=== PATIENT | female | born 1980 | race Caucasian/White ===

== ENCOUNTER 2016-12-22 16:17 | Outpatient (CLI) | payer OTHER ==
[~2016-12-22] VITALS: Ht 165.1 cm; Wt 88.5 kg
--- NOTE | 2016-12-22 16:50 | RADRPT ---
PROCEDURE: US OB biophysical profile. CLINICAL INDICATION: decreased movements TECHNIQUE: Multiple sonographic images of the pelvis were obtained. The images were reviewed on a PACS workstation. COMPARISON: No prior studies are available for comparison. FINDINGS: There is a single viable intrauterine gestation. Cardiac activity is present with 137 beats per min max. There is a vertex presentation. The placenta is anterior. There is no evidence of placental abruption. There is a normal amount of amniotic fluid with an SHYLA = 11.6 cm. Biophysical profile: movement 2/2 tone 2/2. breathing 2/2 SHYLA 2/2 Total 10/03 RPTAT: AA . IMPRESSION: Normal biophysical profile. . .Zaki Viveros MD, MD Date Time Electronically viewed and signed by .Zaki Viveros MD, MD on 12/22/2016 16:49 .S/
--- NOTE | 2016-12-22 17:32 | PN ---
Triage Information Date/Time Reason for visit: DFM Weeks of Gestation 37+ /Para 1/0 Diabetes: none Hypertention: none Objective Heart Rate: 140's Contractions: 6-10 Minutes Apart Disposition: Discharge Assessment/Plan +FM No VB No LOF Irregular CTXs NST reassuring Pelvic L/c/P BPP 10/03 --->precautions discussed --->Retrun in 2 days to monitor the baby TERRIE WHITTAKER M.D. Dec 22, 2016 17:31
--- NOTE | 2016-12-22 17:57 | TRIAGE ---
OB Triage Datetime Report Generated by CPN: 12/22/2016 17:57 Datetime: 12/22/2016 17:16 Labor Evaluation Frequency: IRREG Monitor Mode: External Duration (sec)2399: 50-90 Quality: Mild Pattern: Normal: <= 5 Contractions in 10 Minutes Resting Tone [place]: Relaxed Contraction Comments: PT DENIES UCS AT THIS TIME Heart Rate FHR Baseline Rate: 145 Monitor Mode: External US Variability: Moderate 6-25 bpm Accelerations: 15X15 Decelerations: None Category: Category I Comments: NST REACTIVE FOR GESTATIONAL AGE Datetime: 12/22/2016 16:45 Stage of : OB Triage Assessment Type: Triage Maternal Assessment Level of Consciousness: Fully Conscious DTR's/Clonus: DTRs 2+; No Clonus Headache: Denies Blurred Vision: No Respiratory Effort: Unlabored; Regular Rhythm; Equal Expansion Breath Sounds, Left: Clear and Equal Breath Sounds, Right: Clear and Equal Nausea/Vomiting: Denies RUQ Epigastric Pain: Denies Lower Extremities Edema: Bilateral Lower Extremities Degree: 1+ Upper Extremities Edema: None Degree: None Facial Edema: None Temperature Route: Axillary Fall Risk Assessment History of Falling: (0) No Secondary Diagnosis: (0) No Ambulatory Aid: (0) Bedrest/Nurse Assist IV Therapy: (0) No Gait: (0) Normal/Bedrest/Immobile Mental Status: (0) Oriented to Own Ability Fall Score: 0 Fall Risk Score Definition: No Risk: No action required Pain Assessment Pain Scale: 0 Pain Presence: None/Denies Pain Type: N/A Datetime: 12/22/2016 16:42 Time of Arrival: 12/22/2016 16:04 EGA: 37.4 Arrived By: Ambulatory Arrived From: Dr. Teran Chief Complaint: DFM CAME IN WITH ORDERS FOR NST AND BPP Movement: Decreased Contractions: Denies/Absent Rupture of Membranes: Denies Vaginal Discharge: Denies Recent Sexual Intercouse: Denies Abdominal Trauma: Not Applicable Patient Complaints: None Time Provider Notified: 12/22/2016 15:36 Provider Notified: DR. SWANSON Initial Plan: NST/ BPP Datetime: 12/22/2016 16:38 Comments: ULTRASOUND AT THE BEDSIDE
[2016-12-22] MEDS ORDERED: PREN-93 PO (18:01)
[2016-12-22] MEDS ORDERED: LEVO25TA53 PO (18:01)
[2016-12-22 18:03] VITALS: BP 127/70; PULSE 68; RESP 20; Ht 165.1 cm; Wt 88.5 kg
== END 2016-12-22 18:10 | disposition home or self-care (01) ==
LOC: OBT 16:17 → L-D 16:22 → OBT 18:10
PROVIDERS: ATTEND Obstetrics & Gynecology
DX: O36.8130 Decreased fetal movements, third trimester, not applicable or unspecified (principal); Z3A.37 37 weeks gestation of pregnancy
CPT/HCPCS: 76818; Z7500; G0463

== ENCOUNTER 2016-12-25 07:20 | Outpatient (CLI) | END 2016-12-25 09:55 | disposition home or self-care (01) ==

== ENCOUNTER 2016-12-29 01:20 | Inpatient (IN) | payer OTHER ==
[~2016-12-29] VITALS: Ht 165.1 cm; Wt 87.4 kg
[~2016-12-29 01:20] MED LIST: LEVO25TA53 PO; PREN-93 PO
[2016-12-29 01:47] VITALS: Ht 165.1 cm; Wt 87.4 kg
[2016-12-29 01:48] VITALS: BP 125/77; PULSE 86; RESP 16
--- NOTE | 2016-12-29 02:25 | HP ---
Date/Time of Note Date/Time of Note DATE: 12/29/16 TIME: 02:15 OB - History Hx of Present Free Text/Dictation 36 y.o primigravida at 38w4d c/o srom at 0055 12/29/16 EFM uc q 4-8apart VE 1-2/50%/-3 clear fluid grossly ruptured patient known to be A1DM and also has hypothyroidism on levothyroxine 25mcg admitted for expectant management. ADD: plan to have EFW will do it prior to admit in triage. Estimated Due Date: Jan 08, 2017 : 1 Para: 0 Spontaneous : 0 Therapeutic : 0 Care: Good Care Ultrasounds: Normal mid trimester US Obstetrical Complications: Gestational Diabetes Medical Complications: None Past Family/Social History * Past Medical, Surgical, Family and Obstetric Histories reviewed from chart. Blood Type: B+ Rubella: immune RPR/VDRL: Negative GBS Status: Negative HBsAG: Negative OB Admission Exam Vital Signs Vital Signs Vital Signs Date Time Temp Pulse Resp B/P Pulse Ox O2 Delivery O2 Flow Rate FiO2 12/29/16 01:48 98.1 86 16 125/77 Room Air Physical Exam HEENT: WNL Heart: Rhythm Normal Lungs: Clear, Equal Abdomen: WNL Extremities: Normal Reflexes: Normal Cervical Dilatation: other (1-2) Effacement: 50% Station: -3 Membranes: Ruptured Amniotic Fluid: Clear Heart Rate: 140's Accelerations: Accelerations Present Decelerations: No Decelerations Varibility: Moderate Contractions on Admission: 6-10 Minutes Apart Intensity: Mild OB Assessment/Plan Reason for admission: rupture of membranes Other Assessment: IUP 38w4d A1DM in early labor Plan: Expectant Management Other plan: poss pitocin augmentation ALIVIA HARRIS MD Dec 29, 2016 02:25
--- NOTE | 2016-12-29 02:38 | RADRPT ---
PROCEDURE: Obstetrical ultrasound, limited. CLINICAL INDICATION: Pelvic pain. TECHNIQUE: Multiple sonographic images of the pelvis were obtained using transabdominal technique . Images were obtained with zayas scale and color Doppler. The images were reviewed on a PACS works tation. COMPARISON: 12/25/2016. FINDINGS: There is a single living intrauterine gestation with the fetus in a vertex presentation. hear t tones of 144 beats per minute are identified. The placenta is anterior in location, grade 2. The re is no evidence of placenta previa or abruption. Measurements were made in order to determine age. The results are as follows: BPD =9.41 cm HC =34.49 cm AC =37.40 cm FL =7.78 cm. Estimated gestational age of approximately 39 weeks and 6 days. The estimated date of delivery is 12/30/2016. The EFW = 4087 +/- 613 grams. Estimated weight percentage equals 95.8%. IMPRESSION: Single viable intrauterine gestation of approximately 39 weeks and 6 days, with an ultrasound LARY of 12/30/2016. .Willy Sapp MD, MD Date Time Electronically viewed and signed by .Willy Sapp MD, MD on 12/29/2016 02:38 .T/
[2016-12-29] MEDS ORDERED: IBUPROFEN 600 MG TAB PO PRN (03:00)
[2016-12-29] MEDS ORDERED: BUTORPHANOL 2 MG INJ IV PRN (03:00)
[2016-12-29] MEDS ORDERED: CARBOPROST 250 MCG INJ IM PRN ×3 (03:00→12:30)
[2016-12-29] MEDS ORDERED: METHYLERGONOVINE 0.2 MG INJ IM PRN ×3 (03:00→12:30)
[2016-12-29] MEDS ORDERED: LACTATED RINGER'S 1,000 ML IV PRN (03:00)
[2016-12-29] MEDS ORDERED: LIDOCAINE 1% (MPF) 30 ML INJ INJ PRN (03:00)
[2016-12-29] MEDS ORDERED: MISOPROSTOL 200 MCG TAB PR PRN ×3 (03:00→12:30)
[2016-12-29] MEDS ORDERED: OXYTOCIN 30 UNITS/LR 500 ML IV PRN ×3 (03:00→12:30)
--- NOTE | 2016-12-29 03:27 | TRIAGE ---
OB Triage Datetime Report Generated by CPN: 12/29/2016 03:27 Datetime: 12/29/2016 03:00 Labor Evaluation Frequency: 2-5 Monitor Mode: External Duration (sec)2399: 40-80 Quality: Mild Pattern: Normal: <= 5 Contractions in 10 Minutes Resting Tone [place]: Relaxed Heart Rate FHR Baseline Rate: 135 Monitor Mode: External US Variability: Moderate 6-25 bpm Accelerations: 15X15 Decelerations: None Category: Category I Datetime: 12/29/2016 02:32 Pain Assessment Pain Scale: 5 Pain Presence: Intermittent Pain Type: Contraction Pain Location: Abdomen Pain Goal: 2 Pain Relief Measures: Comfort Measures Datetime: 12/29/2016 02:00 Labor Evaluation Frequency: 2-7 Monitor Mode: External Duration (sec)2399: 40-60 Quality: Mild Pattern: Normal: <= 5 Contractions in 10 Minutes Resting Tone [place]: Relaxed Heart Rate FHR Baseline Rate: 145 Monitor Mode: External US Variability: Moderate 6-25 bpm Accelerations: 15X15 Decelerations: Late Category: Category II Comments: PERIOD OF MINIMAL VARIABILITY NOTED Datetime: 12/29/2016 01:35 Vaginal Exam Dilatation (cms): 1.5 Effacement (%): 50 Station: -3 Membrane Status: Ruptured Membranes Rupture Method: Spontaneous Amniotic Fluid Amount: Moderate Datetime: 12/29/2016 01:29 Maternal Assessment Level of Consciousness: Fully Conscious DTR's/Clonus: DTRs 2+; No Clonus Headache: Denies Blurred Vision: No Respiratory Effort: Unlabored; Regular Rhythm; Equal Expansion RUQ Epigastric Pain: Denies Pain Assessment Pain Scale: 0 Pain Presence: None/Denies Pain Type: N/A Datetime: 12/29/2016 01:27 Time of Arrival: 12/29/2016 01:20 EGA: 38.4 Arrived By: Wheelchair Arrived From: Emergency Dept Chief Complaint: SROM Movement: Present Contractions: Denies/Absent Rupture of Membranes: Ruptured Vaginal Bleeding: None Vaginal Discharge: Present Recent Sexual Intercouse: Denies Abdominal Trauma: Not Applicable Patient Complaints: Other Time Provider Notified: 12/28/2016 01:42 Provider Notified: KIMBERLY Initial Plan: SVE, EFW Datetime: 12/29/2016 01:26 Monitor Mode: External US Comments: MONITORS APPLIED. AUDIBLE HEART TONES PRESENT Datetime: 12/25/2016 07:33 Fall Risk Assessment Fall Score: 0 Fall Risk Score Definition: No Risk: No action required Datetime: 12/25/2016 07:32 EGA: 38.0 Datetime: 12/22/2016 16:45 Fall Risk Assessment Fall Score: 0 Fall Risk Score Definition: No Risk: No action required Datetime: 12/22/2016 16:42 EGA: 37.4
[2016-12-29] MEDS: LACTATED RINGER'S 1,000 ML IV SCH ×2 (05:13→06:13)
[2016-12-29] MEDS ORDERED: LACTATED RINGER'S 1,000 ML IV ONE (08:09)
[2016-12-29] MEDS ORDERED: CITRIC ACID/SODIUM CITRATE 15 ML CUP ONE (08:21)
[2016-12-29] MEDS ORDERED: CITRIC ACID/SODIUM CITRATE 15 ML CUP PO ONE (08:30)
[2016-12-29] MEDS ORDERED: ONDANSETRON 4 MG INJ ONE (08:50)
[2016-12-29] MEDS ORDERED: METOCLOPRAMIDE 10 MG INJ ONE (08:50)
[2016-12-29] MEDS ORDERED: morphine SULFATE/PF (10 MG/10 ML) INJ ONE (08:51)
[2016-12-29] MEDS ORDERED: KETOROLAC 30 MG INJ ONE (08:51)
[2016-12-29] MEDS ORDERED: MEPERIDINE 100 MG INJ ONE (09:06)
[2016-12-29] MEDS ORDERED: MIDAZOLAM 1 MG/ML 2 ML INJ ONE (09:10)
[2016-12-29] MEDS: CEFAZOLIN 2 GM/50 ML (PMX) 50 ML IVPB SCH ×2 (09:41→09:42)
[2016-12-29] MEDS ORDERED: OXYTOCIN 30 UNITS/LR 500 ML IV ONE (09:49)
--- NOTE | 2016-12-29 10:25 | OPR ---
Operative Report Planned Procedure Free Text/Dictation 36 years old EDC January 08, 2017 admitted to [facility] with premature rupture of membrane as of midnight, in early labor, her has been complicated with gestational diabetes diet-controlled, hypothyroidism, on levothyroxine 25 mcg daily also she has undergone ultrasound evaluation for weight, reported 4100 g, plus, when she was informed of the ultrasound report declined further trial of labor and requested delivery, complication of the surgery including but not limited to bowel and bladder injury infection hemorrhage and hematoma explained, she elected C- section delivery. Procedure date Dec 29, 2016 Procedure(s) Primary Performed by see signature line Assisting provider: TERRIE WHITTAKER M.D. Anesthesiologist: OLE WEBBER MD Pre-procedure diagnosis 38 weeks plus , estimated weight over 4100 g, premature rupture of membrane, gestational diabetes, hypothyroidism, declined further trial of labor requested delivery Anesthesia Type: spinal Procedure Description Under satisfactory spinal [] anesthesia, the patient was prepped and draped and placed in a supine position, tilted to the left. Pfannenstiel incision was made , carried through the subcutaneous tissue. Bleeders brought under control with electrocautery. Fascia incised to the length of the incision. Rectus muscles from the fascia, divided midline. Peritoneum exposed, entered through a transverse incision. Exploration of abdomen revealed gravid uterus. Normal- appearing tubes and ovaries bladder flap was developed. Transverse incision was made in the lower segment of the uterus. Amniotic sac ruptured. Clear [] amniotic fluid noted. Live baby boy was delivered from occiput posterior shoulders delivered without any difficulty, nasal oropharyngeal suction performed, cord clamped after stopped pulsation, cord blood obtained ,placenta removed manually uterine cavity cleaned with with sponge and drainage established Uterus closed in 2 layers using [Monocryl #1] in continuous fashion. Peritoneal cavity irrigated with warm saline. Sponge, needle and instrument count reported to be correct. Abdominal peritoneum closed with [0 chromic catgut] continuously. Rectus muscle approximated with [interrupted 2-0 chromic catgut]. Fascia closed with [#1 PDS], cutaneous subcutaneous tissue approximated with 2-0 chromic catgut skin closed with N sorb. Estimated blood loss 600 []mL. Urine bag contained 200]mL of clear urine patient tolerated procedure well transferred to recovery room in a good condition. Post-Procedure Findings: Live Baby boy 9 and 9 baby waited 4370 g 9 lbs. 10 oz. length 20 1/2 Estimated blood loss: other Specimen(s): no Grafts/Implants: no Complication(s): no Pt Condition post procedure: stable Physician Certification I, the undersigned physician, hereby certify that I have discussed the procedure described in this consent form with this patient (or the patient's legal hostess party sales representative), including: * The risk and benefits of the procedure; * Any adverse reactions that may reasonably be expected to occur; * Any alternative efficacious methods of treatment which may be medically viable ; * The potential problems that may occur during recuperation; * Potential for blood transfusion and associated risks/benefits; and * Any research or economic interest I may have regarding this treatment. I further certify that the patient/legally responsible person was encouraged to ask question and that all questions were answered. JEROD SWANSON MD Dec 29, 2016 10:06
[2016-12-29] MEDS ORDERED: KETOROLAC 30 MG INJ IV PRN (10:30)
[2016-12-29] MEDS ORDERED: DIPHENHYDRAMINE 50 MG INJ IV PRN ×2 (10:30)
[2016-12-29] MEDS ORDERED: morphine 2 MG INJ IV PRN ×2 (10:30)
[2016-12-29] MEDS ORDERED: morphine 4 MG/ML VIAL IV PRN (10:30)
[2016-12-29] MEDS ORDERED: OXYTOCIN 30 UNITS/LR 500 ML IV SCH (10:30)
[2016-12-29] MEDS ORDERED: ONDANSETRON 4 MG INJ IV PRN ×2 (10:30)
[2016-12-29] MEDS ORDERED: NALOXONE (0.4 MG/ML) INJ IV PRN (10:30)
[2016-12-29] MEDS ORDERED: morphine (1 MG/ML) 10ML SYRINGE IV PRN ×3 (10:30)
[2016-12-29] MEDS ORDERED: OXYCODONE/ACETAMINOPHEN (5/325) TAB PO PRN ×2 (12:30)
[2016-12-29] MEDS ORDERED: CEFAZOLIN 1 GM/50 ML (PMX) 50 ML IVPB SCH ×2 (12:30→17:00)
[2016-12-29] MEDS ORDERED: LANOLIN 7 GM TUBE TOP PRN (12:30)
[2016-12-29] MEDS ORDERED: HYDROCODONE/APAP (5/325) TAB PO PRN ×2 (12:30)
[2016-12-29 12:35] VITALS: BP 131/69; PULSE 74; RESP 17
[2016-12-29 13:35] VITALS: BP 127/76; PULSE 73; RESP 17
[2016-12-29 16:00] VITALS: BP 128/64; PULSE 69; RESP 16
[2016-12-29] MEDS: OXYTOCIN 30 UNITS/LR 500 ML IV SCH ×3 (16:40→21:25)
[2016-12-29 20:00] VITALS: BP 113/61; PULSE 73; RESP 19
[2016-12-29] MEDS: SENNA/DOCUSATE NA (8.6MG/50MG) TAB PO SCH (21:22)
[2016-12-30 00:10] VITALS: BP 109/62; PULSE 77; RESP 18
[2016-12-30] MEDS: OXYTOCIN 30 UNITS/LR 500 ML IV SCH ×5 (00:20→16:20)
[2016-12-30] MEDS: LACTATED RINGER'S 1,000 ML IV SCH ×3 (01:13→17:30)
[2016-12-30 04:05] VITALS: BP 104/56; PULSE 71; RESP 19
[2016-12-30] MEDS: LEVOTHYROXINE 25 MCG TAB PO SCH (07:27)
[2016-12-30 08:15] VITALS: BP 91/55; PULSE 73; RESP 16
[2016-12-30] MEDS: SENNA/DOCUSATE NA (8.6MG/50MG) TAB PO SCH ×2 (08:45→21:36)
--- NOTE | 2016-12-30 11:32 | PN ---
Date/Time of Note Date/Time of Note DATE: 12/30/16 TIME: 11:30 OB Subjective Subjective Subjective December 30, 2016 Post C section day 1 Doing Well Afebrile Ambulatory Chest Clear Breasts are soft , Nipples are intact Abdomen is soft Fundus is firm Moderate amount of lochia Incision is clean ,No evidence of infection No calf tenderness No ankle edema Laboratory Tests Test 12/29/16 11:39 12/30/16 08:40 Bedside Glucose 132mg/dL White Blood Count 9.010^3/ul Red Blood Count 3.2710^6/ul Hemoglobin 9.6g/dl Hematocrit 28.7% Mean Corpuscular Volume 87.8fl Mean Corpuscular Hemoglobin 29.4pg Mean Corpuscular Hemoglobin Concent 33.4g/dl Red Cell Distribution Width 14.1% Platelet Count 24598^3/UL Mean Platelet Volume 10.4fl Neutrophils % 80.6% Lymphocytes % 13.4% Monocytes % 5.0% Eosinophils % 0.3% Basophils % 0.3% Nucleated Red Blood Cells % 0.0/100WBC Neutrophils # 7.210^3/ul Lymphocytes # 1.210^3/ul Monocytes # 0.510^3/ul Eosinophils # 0.010^3/ul Basophils # 0.010^3/ul Nucleated Red Blood Cells # 0.010^3/ul Current Medications Medications (Trade) Dose Ordered Sig/Hernandez Route PRN Reason Start Time Stop Time Status Last Admin Dose Admin Lactated Ringer's (Lr) 1,000 ml @ 125 mls/hr Q8H IV 12/29/16 02:47 12/29/16 12:24 DC 12/29/16 06:13 Butorphanol Tartrate (Stadol) 2 mg Q2H PRN IV PAIN 12/29/16 03:00 12/29/16 12:24 DC Lidocaine (Xylocaine 1% (Mpf)) 30 ml ONCE PRN INJ EPISIOTOMY/TEARING 12/29/16 03:00 12/29/16 12:24 DC Ibuprofen 600 mg 600 mg ONCE PRN PO Mild Pain (Pain Score 1-3) 12/29/16 03:00 12/29/16 12:24 DC Lactated Ringer's 1,000 ml @ 2,000 mls/hr Q30M PRN IV PRE-EPIDURAL BOLUS 12/29/16 03:00 12/29/16 12:24 DC 12/29/16 08:17 Oxytocin/Lactated Ringer's 500 ml @ 0 mls/hr ONCE PRN IV For Hemorrhage Management 12/29/16 03:00 12/29/16 08:00 DC Methylergonovine Maleate (Methergine) 0.2 mg ONCE PRN IM VAGINAL BLEEDING 12/29/16 03:00 12/29/16 07:59 DC Carboprost Tromethamine (Hemabate) 250 mcg ONCE PRN IM VAGINAL BLEEDING 12/29/16 03:00 12/29/16 07:58 DC Misoprostol 1000 mcg 1,000 mcg ONCE PRN AR VAGINAL BLEEDING 12/29/16 03:00 12/29/16 07:59 DC Cefazolin Sodium/ Dextrose 50 ml @ 100 mls/hr ONCE IVPB 12/29/16 08:00 12/29/16 12:24 DC 12/29/16 09:41 Oxytocin/Lactated Ringer's 500 ml @ 0 mls/hr ONCE PRN IV For Hemorrhage Management 12/29/16 08:00 12/29/16 12:24 DC Methylergonovine Maleate (Methergine) 0.2 mg ONCE PRN IM VAGINAL BLEEDING 12/29/16 08:00 12/29/16 12:24 DC 12/29/16 11:31 Carboprost Tromethamine (Hemabate) 250 mcg ONCE PRN IM VAGINAL BLEEDING 12/29/16 08:00 12/29/16 12:24 DC Misoprostol 1000 mcg 1,000 mcg ONCE PRN AR VAGINAL BLEEDING 12/29/16 08:00 12/29/16 12:24 DC Lactated Ringer's (Lr) 1,000 ml @ 1,000 mls/hr Q1H ONCE IV 12/29/16 08:09 12/29/16 09:08 DC 12/29/16 08:24 Citric Acid/ Sodium Citrate (Bicitra) 30 ml PRE-OP ONCE PO 12/29/16 08:30 12/29/16 08:31 DC 12/29/16 08:24 Citric Acid/ Sodium Citrate (Bicitra) 15 ml STK-MED ONCE .ROUTE 12/29/16 08:21 12/29/16 08:22 DC Ondansetron HCl (Zofran Inj) 4 mg STK-MED ONCE .ROUTE 12/29/16 08:50 12/29/16 08:51 DC Metoclopramide HCl (Reglan) 10 mg STK-MED ONCE .ROUTE 12/29/16 08:50 12/29/16 08:51 DC Ketorolac Tromethamine (Toradol) 30 mg STK-MED ONCE .ROUTE 12/29/16 08:51 12/29/16 08:52 DC Morphine Sulfate (Duramorph) 10 mg STK-MED ONCE .ROUTE 12/29/16 08:51 12/29/16 08:52 DC Meperidine HCl (Demerol) 100 mg STK-MED ONCE .ROUTE 12/29/16 09:06 12/29/16 09:07 DC Midazolam HCl 2 mg 2 mg STK-MED ONCE .ROUTE 12/29/16 09:10 12/29/16 09:11 DC Oxytocin/Lactated Ringer's 500 ml @ ud STK-MED ONCE IV 12/29/16 09:49 12/29/16 09:50 DC Morphine Sulfate (morphine (REC)) 2 mg PACU ORDER PRN IV MILD PAIN LEVEL 1-3 12/29/16 10:30 12/29/16 12:24 DC Morphine Sulfate (morphine (REC)) 4 mg PACU ORDER PRN IV MODERATE PAIN LEVEL 4-6 12/29/16 10:30 12/29/16 12:24 DC Morphine Sulfate (morphine (REC)) 6 mg PACU ORDER PRN IV SEVERE PAIN LEVEL 7-10 12/29/16 10:30 12/29/16 12:24 DC Ondansetron HCl (Zofran Inj) 4 mg PACU ORDER PRN IV NAUSEA AND/OR VOMITING 12/29/16 10:30 12/29/16 12:24 DC Diphenhydramine HCl (Benadryl) 25 mg PACU ORDER PRN IV PRURITUS 12/29/16 10:30 12/29/16 12:24 DC Naloxone HCl (Narcan) 0.1 mg Q2M PRN IV FOR RESP RATE 8 OR LESS 12/29/16 10:30 12/30/16 10:29 DC Ketorolac Tromethamine (Toradol) 30 mg Q6H PRN IV PAIN 12/29/16 10:30 12/30/16 10:29 DC 12/30/16 08:44 Morphine Sulfate (morphine) 3 mg Q2 PRN IV BREAKTHROUGH PAIN 12/29/16 10:30 12/30/16 10:29 DC Morphine Sulfate (morphine) 2 mg Q3H PRN IV PAIN LEVEL 1-5 12/29/16 10:30 12/30/16 10:29 DC Morphine Sulfate (morphine) 4 mg Q3H PRN IV PAIN LEVEL 6-10 12/29/16 10:30 12/30/16 10:29 DC Diphenhydramine HCl (Benadryl) 25 mg Q6H PRN IV ITCHING 12/29/16 10:30 12/30/16 10:29 DC 12/29/16 14:28 Ondansetron HCl 4 mg 4 mg Q6H PRN IV NAUSEA AND/OR VOMITING 12/29/16 10:30 12/30/16 10:29 DC Oxytocin/Lactated Ringer's 500 ml @ 125 mls/hr ONCE -MAY REPEAT X1 IV 12/29/16 10:30 12/29/16 12:24 DC 12/29/16 11:30 Acetaminophen/ Hydrocodone Bitart ([place] (5/325)) 1 tab Q4H PRN PO PAIN LEVEL 4-6 12/29/16 12:30 Acetaminophen/ Hydrocodone Bitart ([place] (5/325)) 2 tab Q4H PRN PO PAIN LEVEL 7-10 12/29/16 12:30 Oxycodone/ Acetaminophen (Percocet (5/ 325)) 1 tab Q4H PRN PO PAIN LEVEL 4-6 12/29/16 12:30 Oxycodone/ Acetaminophen (Percocet (5/ 325)) 2 tab Q4H PRN PO PAIN LEVEL 7-10 12/29/16 12:30 Ibuprofen (Motrin) 600 mg Q6 PO 12/30/16 12:00 Simethicone (Mylicon) 160 mg Q8H PRN PO DISTENSION/GAS/BLOATING 12/29/16 12:30 12/30/16 11:11 Senna/Docusate Sodium (Senokot-S) 1 tab BID PO 12/29/16 21:00 12/30/16 08:45 Lanolin (Ade-Y-Htkpzq) 1 applic BEDSIDE MEDICATION PRN TOP BEDSIDE FOR [place] TO NIPPLES 12/29/16 12:30 12/29/16 16:40 Diphtheria/ Tetanus/Acell Pertussis 0.5 ml 0.5 ml ONCE ONCE IM* 01/01/17 09:00 01/01/17 09:01 Oxytocin/Lactated Ringer's 500 ml @ 0 mls/hr ONCE PRN IV For Hemorrhage Management 12/29/16 12:30 Methylergonovine Maleate (Methergine) 0.2 mg ONCE PRN IM VAGINAL BLEEDING 12/29/16 12:30 Carboprost Tromethamine (Hemabate) 250 mcg ONCE PRN IM VAGINAL BLEEDING 12/29/16 12:30 Misoprostol 1000 mcg 1,000 mcg ONCE PRN AR VAGINAL BLEEDING 12/29/16 12:30 Cefazolin Sodium 50 ml @ 100 mls/hr ONCE IVPB 12/29/16 12:30 12/29/16 12:59 DC Oxytocin/Lactated Ringer's 500 ml @ 125 mls/hr Q4H IV 12/29/16 12:20 12/29/16 21:25 Levothyroxine Sodium 25 mcg 25 mcg BEFORE BREAKFAST PO 12/30/16 07:00 12/30/16 07:27 Cefazolin Sodium 50 ml @ 100 mls/hr ONCE IVPB 12/29/16 17:00 12/29/16 17:29 DC 12/29/16 16:41 Lactated Ringer's (Lr) 1,000 ml @ 125 mls/hr Q8H IV 12/30/16 01:30 12/30/16 01:13 New born is doing well, Breast feeding BEATRIS DIAZ MD Dec 30, 2016 11:31
--- NOTE | 2016-12-30 11:32 | PN ---
Date/Time of Note Date/Time of Note DATE: 12/30/16 TIME: 11:30 OB Subjective Subjective Subjective December 30, 2016 Post C section day 1 Doing Well Afebrile Ambulatory Chest Clear Breasts are soft , Nipples are intact Abdomen is soft Fundus is firm Moderate amount of lochia Incision is clean ,No evidence of infection No calf tenderness No ankle edema Laboratory Tests Test 12/29/16 11:39 12/30/16 08:40 Bedside Glucose 132mg/dL White Blood Count 9.010^3/ul Red Blood Count 3.2710^6/ul Hemoglobin 9.6g/dl Hematocrit 28.7% Mean Corpuscular Volume 87.8fl Mean Corpuscular Hemoglobin 29.4pg Mean Corpuscular Hemoglobin Concent 33.4g/dl Red Cell Distribution Width 14.1% Platelet Count 59077^3/UL Mean Platelet Volume 10.4fl Neutrophils % 80.6% Lymphocytes % 13.4% Monocytes % 5.0% Eosinophils % 0.3% Basophils % 0.3% Nucleated Red Blood Cells % 0.0/100WBC Neutrophils # 7.210^3/ul Lymphocytes # 1.210^3/ul Monocytes # 0.510^3/ul Eosinophils # 0.010^3/ul Basophils # 0.010^3/ul Nucleated Red Blood Cells # 0.010^3/ul Current Medications Medications (Trade) Dose Ordered Sig/Hernandez Route PRN Reason Start Time Stop Time Status Last Admin Dose Admin Lactated Ringer's (Lr) 1,000 ml @ 125 mls/hr Q8H IV 12/29/16 02:47 12/29/16 12:24 DC 12/29/16 06:13 Butorphanol Tartrate (Stadol) 2 mg Q2H PRN IV PAIN 12/29/16 03:00 12/29/16 12:24 DC Lidocaine (Xylocaine 1% (Mpf)) 30 ml ONCE PRN INJ EPISIOTOMY/TEARING 12/29/16 03:00 12/29/16 12:24 DC Ibuprofen 600 mg 600 mg ONCE PRN PO Mild Pain (Pain Score 1-3) 12/29/16 03:00 12/29/16 12:24 DC Lactated Ringer's 1,000 ml @ 2,000 mls/hr Q30M PRN IV PRE-EPIDURAL BOLUS 12/29/16 03:00 12/29/16 12:24 DC 12/29/16 08:17 Oxytocin/Lactated Ringer's 500 ml @ 0 mls/hr ONCE PRN IV For Hemorrhage Management 12/29/16 03:00 12/29/16 08:00 DC Methylergonovine Maleate (Methergine) 0.2 mg ONCE PRN IM VAGINAL BLEEDING 12/29/16 03:00 12/29/16 07:59 DC Carboprost Tromethamine (Hemabate) 250 mcg ONCE PRN IM VAGINAL BLEEDING 12/29/16 03:00 12/29/16 07:58 DC Misoprostol 1000 mcg 1,000 mcg ONCE PRN CA VAGINAL BLEEDING 12/29/16 03:00 12/29/16 07:59 DC Cefazolin Sodium/ Dextrose 50 ml @ 100 mls/hr ONCE IVPB 12/29/16 08:00 12/29/16 12:24 DC 12/29/16 09:41 Oxytocin/Lactated Ringer's 500 ml @ 0 mls/hr ONCE PRN IV For Hemorrhage Management 12/29/16 08:00 12/29/16 12:24 DC Methylergonovine Maleate (Methergine) 0.2 mg ONCE PRN IM VAGINAL BLEEDING 12/29/16 08:00 12/29/16 12:24 DC 12/29/16 11:31 Carboprost Tromethamine (Hemabate) 250 mcg ONCE PRN IM VAGINAL BLEEDING 12/29/16 08:00 12/29/16 12:24 DC Misoprostol 1000 mcg 1,000 mcg ONCE PRN CA VAGINAL BLEEDING 12/29/16 08:00 12/29/16 12:24 DC Lactated Ringer's (Lr) 1,000 ml @ 1,000 mls/hr Q1H ONCE IV 12/29/16 08:09 12/29/16 09:08 DC 12/29/16 08:24 Citric Acid/ Sodium Citrate (Bicitra) 30 ml PRE-OP ONCE PO 12/29/16 08:30 12/29/16 08:31 DC 12/29/16 08:24 Citric Acid/ Sodium Citrate (Bicitra) 15 ml STK-MED ONCE .ROUTE 12/29/16 08:21 12/29/16 08:22 DC Ondansetron HCl (Zofran Inj) 4 mg STK-MED ONCE .ROUTE 12/29/16 08:50 12/29/16 08:51 DC Metoclopramide HCl (Reglan) 10 mg STK-MED ONCE .ROUTE 12/29/16 08:50 12/29/16 08:51 DC Ketorolac Tromethamine (Toradol) 30 mg STK-MED ONCE .ROUTE 12/29/16 08:51 12/29/16 08:52 DC Morphine Sulfate (Duramorph) 10 mg STK-MED ONCE .ROUTE 12/29/16 08:51 12/29/16 08:52 DC Meperidine HCl (Demerol) 100 mg STK-MED ONCE .ROUTE 12/29/16 09:06 12/29/16 09:07 DC Midazolam HCl 2 mg 2 mg STK-MED ONCE .ROUTE 12/29/16 09:10 12/29/16 09:11 DC Oxytocin/Lactated Ringer's 500 ml @ ud STK-MED ONCE IV 12/29/16 09:49 12/29/16 09:50 DC Morphine Sulfate (morphine (REC)) 2 mg PACU ORDER PRN IV MILD PAIN LEVEL 1-3 12/29/16 10:30 12/29/16 12:24 DC Morphine Sulfate (morphine (REC)) 4 mg PACU ORDER PRN IV MODERATE PAIN LEVEL 4-6 12/29/16 10:30 12/29/16 12:24 DC Morphine Sulfate (morphine (REC)) 6 mg PACU ORDER PRN IV SEVERE PAIN LEVEL 7-10 12/29/16 10:30 12/29/16 12:24 DC Ondansetron HCl (Zofran Inj) 4 mg PACU ORDER PRN IV NAUSEA AND/OR VOMITING 12/29/16 10:30 12/29/16 12:24 DC Diphenhydramine HCl (Benadryl) 25 mg PACU ORDER PRN IV PRURITUS 12/29/16 10:30 12/29/16 12:24 DC Naloxone HCl (Narcan) 0.1 mg Q2M PRN IV FOR RESP RATE 8 OR LESS 12/29/16 10:30 12/30/16 10:29 DC Ketorolac Tromethamine (Toradol) 30 mg Q6H PRN IV PAIN 12/29/16 10:30 12/30/16 10:29 DC 12/30/16 08:44 Morphine Sulfate (morphine) 3 mg Q2 PRN IV BREAKTHROUGH PAIN 12/29/16 10:30 12/30/16 10:29 DC Morphine Sulfate (morphine) 2 mg Q3H PRN IV PAIN LEVEL 1-5 12/29/16 10:30 12/30/16 10:29 DC Morphine Sulfate (morphine) 4 mg Q3H PRN IV PAIN LEVEL 6-10 12/29/16 10:30 12/30/16 10:29 DC Diphenhydramine HCl (Benadryl) 25 mg Q6H PRN IV ITCHING 12/29/16 10:30 12/30/16 10:29 DC 12/29/16 14:28 Ondansetron HCl 4 mg 4 mg Q6H PRN IV NAUSEA AND/OR VOMITING 12/29/16 10:30 12/30/16 10:29 DC Oxytocin/Lactated Ringer's 500 ml @ 125 mls/hr ONCE -MAY REPEAT X1 IV 12/29/16 10:30 12/29/16 12:24 DC 12/29/16 11:30 Acetaminophen/ Hydrocodone Bitart ([place] (5/325)) 1 tab Q4H PRN PO PAIN LEVEL 4-6 12/29/16 12:30 Acetaminophen/ Hydrocodone Bitart ([place] (5/325)) 2 tab Q4H PRN PO PAIN LEVEL 7-10 12/29/16 12:30 Oxycodone/ Acetaminophen (Percocet (5/ 325)) 1 tab Q4H PRN PO PAIN LEVEL 4-6 12/29/16 12:30 Oxycodone/ Acetaminophen (Percocet (5/ 325)) 2 tab Q4H PRN PO PAIN LEVEL 7-10 12/29/16 12:30 Ibuprofen (Motrin) 600 mg Q6 PO 12/30/16 12:00 Simethicone (Mylicon) 160 mg Q8H PRN PO DISTENSION/GAS/BLOATING 12/29/16 12:30 12/30/16 11:11 Senna/Docusate Sodium (Senokot-S) 1 tab BID PO 12/29/16 21:00 12/30/16 08:45 Lanolin ([id number]) 1 applic BEDSIDE MEDICATION PRN TOP BEDSIDE FOR FRANCISCO TO NIPPLES 12/29/16 12:30 12/29/16 16:40 Diphtheria/ Tetanus/Acell Pertussis 0.5 ml 0.5 ml ONCE ONCE IM* 01/01/17 09:00 01/01/17 09:01 Oxytocin/Lactated Ringer's 500 ml @ 0 mls/hr ONCE PRN IV For Hemorrhage Management 12/29/16 12:30 Methylergonovine Maleate (Methergine) 0.2 mg ONCE PRN IM VAGINAL BLEEDING 12/29/16 12:30 Carboprost Tromethamine (Hemabate) 250 mcg ONCE PRN IM VAGINAL BLEEDING 12/29/16 12:30 Misoprostol 1000 mcg 1,000 mcg ONCE PRN CA VAGINAL BLEEDING 12/29/16 12:30 Cefazolin Sodium 50 ml @ 100 mls/hr ONCE IVPB 12/29/16 12:30 12/29/16 12:59 DC Oxytocin/Lactated Ringer's 500 ml @ 125 mls/hr Q4H IV 12/29/16 12:20 12/29/16 21:25 Levothyroxine Sodium 25 mcg 25 mcg BEFORE BREAKFAST PO 12/30/16 07:00 12/30/16 07:27 Cefazolin Sodium 50 ml @ 100 mls/hr ONCE IVPB 12/29/16 17:00 12/29/16 17:29 DC 12/29/16 16:41 Lactated Ringer's (Lr) 1,000 ml @ 125 mls/hr Q8H IV 12/30/16 01:30 12/30/16 01:13 New born is doing well, Breast feeding BEATRIS DIAZ MD Dec 30, 2016 11:31
--- NOTE | 2016-12-30 11:32 | PN ---
Date/Time of Note Date/Time of Note DATE: 12/30/16 TIME: 11:30 OB Subjective Subjective Subjective December 30, 2016 Post C section day 1 Doing Well Afebrile Ambulatory Chest Clear Breasts are soft , Nipples are intact Abdomen is soft Fundus is firm Moderate amount of lochia Incision is clean ,No evidence of infection No calf tenderness No ankle edema Laboratory Tests Test 12/29/16 11:39 12/30/16 08:40 Bedside Glucose 132mg/dL White Blood Count 9.010^3/ul Red Blood Count 3.2710^6/ul Hemoglobin 9.6g/dl Hematocrit 28.7% Mean Corpuscular Volume 87.8fl Mean Corpuscular Hemoglobin 29.4pg Mean Corpuscular Hemoglobin Concent 33.4g/dl Red Cell Distribution Width 14.1% Platelet Count 28518^3/UL Mean Platelet Volume 10.4fl Neutrophils % 80.6% Lymphocytes % 13.4% Monocytes % 5.0% Eosinophils % 0.3% Basophils % 0.3% Nucleated Red Blood Cells % 0.0/100WBC Neutrophils # 7.210^3/ul Lymphocytes # 1.210^3/ul Monocytes # 0.510^3/ul Eosinophils # 0.010^3/ul Basophils # 0.010^3/ul Nucleated Red Blood Cells # 0.010^3/ul Current Medications Medications (Trade) Dose Ordered Sig/Hernandez Route PRN Reason Start Time Stop Time Status Last Admin Dose Admin Lactated Ringer's (Lr) 1,000 ml @ 125 mls/hr Q8H IV 12/29/16 02:47 12/29/16 12:24 DC 12/29/16 06:13 Butorphanol Tartrate (Stadol) 2 mg Q2H PRN IV PAIN 12/29/16 03:00 12/29/16 12:24 DC Lidocaine (Xylocaine 1% (Mpf)) 30 ml ONCE PRN INJ EPISIOTOMY/TEARING 12/29/16 03:00 12/29/16 12:24 DC Ibuprofen 600 mg 600 mg ONCE PRN PO Mild Pain (Pain Score 1-3) 12/29/16 03:00 12/29/16 12:24 DC Lactated Ringer's 1,000 ml @ 2,000 mls/hr Q30M PRN IV PRE-EPIDURAL BOLUS 12/29/16 03:00 12/29/16 12:24 DC 12/29/16 08:17 Oxytocin/Lactated Ringer's 500 ml @ 0 mls/hr ONCE PRN IV For Hemorrhage Management 12/29/16 03:00 12/29/16 08:00 DC Methylergonovine Maleate (Methergine) 0.2 mg ONCE PRN IM VAGINAL BLEEDING 12/29/16 03:00 12/29/16 07:59 DC Carboprost Tromethamine (Hemabate) 250 mcg ONCE PRN IM VAGINAL BLEEDING 12/29/16 03:00 12/29/16 07:58 DC Misoprostol 1000 mcg 1,000 mcg ONCE PRN [place] VAGINAL BLEEDING 12/29/16 03:00 12/29/16 07:59 DC Cefazolin Sodium/ Dextrose 50 ml @ 100 mls/hr ONCE IVPB 12/29/16 08:00 12/29/16 12:24 DC 12/29/16 09:41 Oxytocin/Lactated Ringer's 500 ml @ 0 mls/hr ONCE PRN IV For Hemorrhage Management 12/29/16 08:00 12/29/16 12:24 DC Methylergonovine Maleate (Methergine) 0.2 mg ONCE PRN IM VAGINAL BLEEDING 12/29/16 08:00 12/29/16 12:24 DC 12/29/16 11:31 Carboprost Tromethamine (Hemabate) 250 mcg ONCE PRN IM VAGINAL BLEEDING 12/29/16 08:00 12/29/16 12:24 DC Misoprostol 1000 mcg 1,000 mcg ONCE PRN MS VAGINAL BLEEDING 12/29/16 08:00 12/29/16 12:24 DC Lactated Ringer's (Lr) 1,000 ml @ 1,000 mls/hr Q1H ONCE IV 12/29/16 08:09 12/29/16 09:08 DC 12/29/16 08:24 Citric Acid/ Sodium Citrate (Bicitra) 30 ml PRE-OP ONCE PO 12/29/16 08:30 12/29/16 08:31 DC 12/29/16 08:24 Citric Acid/ Sodium Citrate (Bicitra) 15 ml STK-MED ONCE .ROUTE 12/29/16 08:21 12/29/16 08:22 DC Ondansetron HCl (Zofran Inj) 4 mg STK-MED ONCE .ROUTE 12/29/16 08:50 12/29/16 08:51 DC Metoclopramide HCl (Reglan) 10 mg STK-MED ONCE .ROUTE 12/29/16 08:50 12/29/16 08:51 DC Ketorolac Tromethamine (Toradol) 30 mg STK-MED ONCE .ROUTE 12/29/16 08:51 12/29/16 08:52 DC Morphine Sulfate (Duramorph) 10 mg STK-MED ONCE .ROUTE 12/29/16 08:51 12/29/16 08:52 DC Meperidine HCl (Demerol) 100 mg STK-MED ONCE .ROUTE 12/29/16 09:06 12/29/16 09:07 DC Midazolam HCl 2 mg 2 mg STK-MED ONCE .ROUTE 12/29/16 09:10 12/29/16 09:11 DC Oxytocin/Lactated Ringer's 500 ml @ ud STK-MED ONCE IV 12/29/16 09:49 12/29/16 09:50 DC Morphine Sulfate (morphine (REC)) 2 mg PACU ORDER PRN IV MILD PAIN LEVEL 1-3 12/29/16 10:30 12/29/16 12:24 DC Morphine Sulfate (morphine (REC)) 4 mg PACU ORDER PRN IV MODERATE PAIN LEVEL 4-6 12/29/16 10:30 12/29/16 12:24 DC Morphine Sulfate (morphine (REC)) 6 mg PACU ORDER PRN IV SEVERE PAIN LEVEL 7-10 12/29/16 10:30 12/29/16 12:24 DC Ondansetron HCl (Zofran Inj) 4 mg PACU ORDER PRN IV NAUSEA AND/OR VOMITING 12/29/16 10:30 12/29/16 12:24 DC Diphenhydramine HCl (Benadryl) 25 mg PACU ORDER PRN IV PRURITUS 12/29/16 10:30 12/29/16 12:24 DC Naloxone HCl (Narcan) 0.1 mg Q2M PRN IV FOR RESP RATE 8 OR LESS 12/29/16 10:30 12/30/16 10:29 DC Ketorolac Tromethamine (Toradol) 30 mg Q6H PRN IV PAIN 12/29/16 10:30 12/30/16 10:29 DC 12/30/16 08:44 Morphine Sulfate (morphine) 3 mg Q2 PRN IV BREAKTHROUGH PAIN 12/29/16 10:30 12/30/16 10:29 DC Morphine Sulfate (morphine) 2 mg Q3H PRN IV PAIN LEVEL 1-5 12/29/16 10:30 12/30/16 10:29 DC Morphine Sulfate (morphine) 4 mg Q3H PRN IV PAIN LEVEL 6-10 12/29/16 10:30 12/30/16 10:29 DC Diphenhydramine HCl (Benadryl) 25 mg Q6H PRN IV ITCHING 12/29/16 10:30 12/30/16 10:29 DC 12/29/16 14:28 Ondansetron HCl 4 mg 4 mg Q6H PRN IV NAUSEA AND/OR VOMITING 12/29/16 10:30 12/30/16 10:29 DC Oxytocin/Lactated Ringer's 500 ml @ 125 mls/hr ONCE -MAY REPEAT X1 IV 12/29/16 10:30 12/29/16 12:24 DC 12/29/16 11:30 Acetaminophen/ Hydrocodone Bitart ([place] (5/325)) 1 tab Q4H PRN PO PAIN LEVEL 4-6 12/29/16 12:30 Acetaminophen/ Hydrocodone Bitart ([place] (5/325)) 2 tab Q4H PRN PO PAIN LEVEL 7-10 12/29/16 12:30 Oxycodone/ Acetaminophen (Percocet (5/ 325)) 1 tab Q4H PRN PO PAIN LEVEL 4-6 12/29/16 12:30 Oxycodone/ Acetaminophen (Percocet (5/ 325)) 2 tab Q4H PRN PO PAIN LEVEL 7-10 12/29/16 12:30 Ibuprofen (Motrin) 600 mg Q6 PO 12/30/16 12:00 Simethicone (Mylicon) 160 mg Q8H PRN PO DISTENSION/GAS/BLOATING 12/29/16 12:30 12/30/16 11:11 Senna/Docusate Sodium (Senokot-S) 1 tab BID PO 12/29/16 21:00 12/30/16 08:45 Lanolin ([id number]) 1 applic BEDSIDE MEDICATION PRN TOP BEDSIDE FOR [place] TO NIPPLES 12/29/16 12:30 12/29/16 16:40 Diphtheria/ Tetanus/Acell Pertussis 0.5 ml 0.5 ml ONCE ONCE IM* 01/01/17 09:00 01/01/17 09:01 Oxytocin/Lactated Ringer's 500 ml @ 0 mls/hr ONCE PRN IV For Hemorrhage Management 12/29/16 12:30 Methylergonovine Maleate (Methergine) 0.2 mg ONCE PRN IM VAGINAL BLEEDING 12/29/16 12:30 Carboprost Tromethamine (Hemabate) 250 mcg ONCE PRN IM VAGINAL BLEEDING 12/29/16 12:30 Misoprostol 1000 mcg 1,000 mcg ONCE PRN MS VAGINAL BLEEDING 12/29/16 12:30 Cefazolin Sodium 50 ml @ 100 mls/hr ONCE IVPB 12/29/16 12:30 12/29/16 12:59 DC Oxytocin/Lactated Ringer's 500 ml @ 125 mls/hr Q4H IV 12/29/16 12:20 12/29/16 21:25 Levothyroxine Sodium 25 mcg 25 mcg BEFORE BREAKFAST PO 12/30/16 07:00 12/30/16 07:27 Cefazolin Sodium 50 ml @ 100 mls/hr ONCE IVPB 12/29/16 17:00 12/29/16 17:29 DC 12/29/16 16:41 Lactated Ringer's (Lr) 1,000 ml @ 125 mls/hr Q8H IV 12/30/16 01:30 12/30/16 01:13 New born is doing well, Breast feeding BEATRIS DIAZ MD Dec 30, 2016 11:31
[2016-12-30] MEDS: IBUPROFEN 600 MG TAB PO SCH ×2 (13:29→18:58)
[2016-12-30 16:00] VITALS: BP 113/60; PULSE 72; RESP 17
[2016-12-30 20:05] VITALS: BP 114/65; PULSE 63; RESP 18
[2016-12-31] MEDS: IBUPROFEN 600 MG TAB PO SCH ×5 (00:18→23:30)
[2016-12-31 04:10] VITALS: BP 120/74; PULSE 74; RESP 18
[2016-12-31] MEDS: LEVOTHYROXINE 25 MCG TAB PO SCH (06:32)
[2016-12-31 08:29] VITALS: BP 116/62; PULSE 78; RESP 18
[2016-12-31] MEDS: SENNA/DOCUSATE NA (8.6MG/50MG) TAB PO SCH ×2 (08:31→21:14)
--- NOTE | 2016-12-31 13:08 | PN ---
Date/Time of Note Date/Time of Note DATE: 12/31/16 TIME: 13:06 OB Subjective Subjective Subjective Post C section day 2 Doing Well Afebrile Ambulatory Chest Clear Breasts are soft , Nipples are intact Abdomen is soft Fundus is firm Moderate amount of lochia Incision is clean ,No evidence of infection No calf tenderness No ankle edema Current Medications Medications (Trade) Dose Ordered Sig/Hernandez Route PRN Reason Start Time Stop Time Status Last Admin Dose Admin Lactated Ringer's (Lr) 1,000 ml @ 125 mls/hr Q8H IV 12/29/16 02:47 12/29/16 12:24 DC 12/29/16 06:13 Butorphanol Tartrate (Stadol) 2 mg Q2H PRN IV PAIN 12/29/16 03:00 12/29/16 12:24 DC Lidocaine (Xylocaine 1% (Mpf)) 30 ml ONCE PRN INJ EPISIOTOMY/TEARING 12/29/16 03:00 12/29/16 12:24 DC Ibuprofen 600 mg 600 mg ONCE PRN PO Mild Pain (Pain Score 1-3) 12/29/16 03:00 12/29/16 12:24 DC Lactated Ringer's 1,000 ml @ 2,000 mls/hr Q30M PRN IV PRE-EPIDURAL BOLUS 12/29/16 03:00 12/29/16 12:24 DC 12/29/16 08:17 Oxytocin/Lactated Ringer's 500 ml @ 0 mls/hr ONCE PRN IV For Hemorrhage Management 12/29/16 03:00 12/29/16 08:00 DC Methylergonovine Maleate (Methergine) 0.2 mg ONCE PRN IM VAGINAL BLEEDING 12/29/16 03:00 12/29/16 07:59 DC Carboprost Tromethamine (Hemabate) 250 mcg ONCE PRN IM VAGINAL BLEEDING 12/29/16 03:00 12/29/16 07:58 DC Misoprostol 1000 mcg 1,000 mcg ONCE PRN [place] VAGINAL BLEEDING 12/29/16 03:00 12/29/16 07:59 DC Cefazolin Sodium/ Dextrose 50 ml @ 100 mls/hr ONCE IVPB 12/29/16 08:00 12/29/16 12:24 DC 12/29/16 09:41 Oxytocin/Lactated Ringer's 500 ml @ 0 mls/hr ONCE PRN IV For Hemorrhage Management 12/29/16 08:00 12/29/16 12:24 DC Methylergonovine Maleate (Methergine) 0.2 mg ONCE PRN IM VAGINAL BLEEDING 12/29/16 08:00 12/29/16 12:24 DC 12/29/16 11:31 Carboprost Tromethamine (Hemabate) 250 mcg ONCE PRN IM VAGINAL BLEEDING 12/29/16 08:00 12/29/16 12:24 DC Misoprostol 1000 mcg 1,000 mcg ONCE PRN [place] VAGINAL BLEEDING 12/29/16 08:00 12/29/16 12:24 DC Lactated Ringer's (Lr) 1,000 ml @ 1,000 mls/hr Q1H ONCE IV 12/29/16 08:09 12/29/16 09:08 DC 12/29/16 08:24 Citric Acid/ Sodium Citrate (Bicitra) 30 ml PRE-OP ONCE PO 12/29/16 08:30 12/29/16 08:31 DC 12/29/16 08:24 Citric Acid/ Sodium Citrate (Bicitra) 15 ml STK-MED ONCE .ROUTE 12/29/16 08:21 12/29/16 08:22 DC Ondansetron HCl (Zofran Inj) 4 mg STK-MED ONCE .ROUTE 12/29/16 08:50 12/29/16 08:51 DC Metoclopramide HCl (Reglan) 10 mg STK-MED ONCE .ROUTE 12/29/16 08:50 12/29/16 08:51 DC Ketorolac Tromethamine (Toradol) 30 mg STK-MED ONCE .ROUTE 12/29/16 08:51 12/29/16 08:52 DC Morphine Sulfate (Duramorph) 10 mg STK-MED ONCE .ROUTE 12/29/16 08:51 12/29/16 08:52 DC Meperidine HCl (Demerol) 100 mg STK-MED ONCE .ROUTE 12/29/16 09:06 12/29/16 09:07 DC Midazolam HCl 2 mg 2 mg STK-MED ONCE .ROUTE 12/29/16 09:10 12/29/16 09:11 DC Oxytocin/Lactated Ringer's 500 ml @ ud STK-MED ONCE IV 12/29/16 09:49 12/29/16 09:50 DC Morphine Sulfate (morphine (REC)) 2 mg PACU ORDER PRN IV MILD PAIN LEVEL 1-3 12/29/16 10:30 12/29/16 12:24 DC Morphine Sulfate (morphine (REC)) 4 mg PACU ORDER PRN IV MODERATE PAIN LEVEL 4-6 12/29/16 10:30 12/29/16 12:24 DC Morphine Sulfate (morphine (REC)) 6 mg PACU ORDER PRN IV SEVERE PAIN LEVEL 7-10 12/29/16 10:30 12/29/16 12:24 DC Ondansetron HCl (Zofran Inj) 4 mg PACU ORDER PRN IV NAUSEA AND/OR VOMITING 12/29/16 10:30 12/29/16 12:24 DC Diphenhydramine HCl (Benadryl) 25 mg PACU ORDER PRN IV PRURITUS 12/29/16 10:30 12/29/16 12:24 DC Naloxone HCl (Narcan) 0.1 mg Q2M PRN IV FOR RESP RATE 8 OR LESS 12/29/16 10:30 12/30/16 10:29 DC Ketorolac Tromethamine (Toradol) 30 mg Q6H PRN IV PAIN 12/29/16 10:30 12/30/16 10:29 DC 12/30/16 08:44 Morphine Sulfate (morphine) 3 mg Q2 PRN IV BREAKTHROUGH PAIN 12/29/16 10:30 12/30/16 10:29 DC Morphine Sulfate (morphine) 2 mg Q3H PRN IV PAIN LEVEL 1-5 12/29/16 10:30 12/30/16 10:29 DC Morphine Sulfate (morphine) 4 mg Q3H PRN IV PAIN LEVEL 6-10 12/29/16 10:30 12/30/16 10:29 DC Diphenhydramine HCl (Benadryl) 25 mg Q6H PRN IV ITCHING 12/29/16 10:30 12/30/16 10:29 DC 12/29/16 14:28 Ondansetron HCl 4 mg 4 mg Q6H PRN IV NAUSEA AND/OR VOMITING 12/29/16 10:30 12/30/16 10:29 DC Oxytocin/Lactated Ringer's 500 ml @ 125 mls/hr ONCE -MAY REPEAT X1 IV 12/29/16 10:30 12/29/16 12:24 DC 12/29/16 11:30 Acetaminophen/ Hydrocodone Bitart ([place] (5/325)) 1 tab Q4H PRN PO PAIN LEVEL 4-6 12/29/16 12:30 Acetaminophen/ Hydrocodone Bitart ([place] (5/325)) 2 tab Q4H PRN PO PAIN LEVEL 7-10 12/29/16 12:30 Oxycodone/ Acetaminophen (Percocet (5/ 325)) 1 tab Q4H PRN PO PAIN LEVEL 4-6 12/29/16 12:30 Oxycodone/ Acetaminophen (Percocet (5/ 325)) 2 tab Q4H PRN PO PAIN LEVEL 7-10 12/29/16 12:30 12/30/16 17:13 Ibuprofen (Motrin) 600 mg Q6 PO 12/30/16 12:00 12/31/16 12:17 Simethicone (Mylicon) 160 mg Q8H PRN PO DISTENSION/GAS/BLOATING 12/29/16 12:30 12/30/16 11:11 Senna/Docusate Sodium (Senokot-S) 1 tab BID PO 12/29/16 21:00 12/31/16 08:31 Lanolin (Pxp-H-[id number]) 1 applic BEDSIDE MEDICATION PRN TOP BEDSIDE FOR [place] TO NIPPLES 12/29/16 12:30 12/29/16 16:40 Diphtheria/ Tetanus/Acell Pertussis 0.5 ml 0.5 ml ONCE ONCE IM* 01/01/17 09:00 01/01/17 09:01 Oxytocin/Lactated Ringer's 500 ml @ 0 mls/hr ONCE PRN IV For Hemorrhage Management 12/29/16 12:30 Methylergonovine Maleate (Methergine) 0.2 mg ONCE PRN IM VAGINAL BLEEDING 12/29/16 12:30 Carboprost Tromethamine (Hemabate) 250 mcg ONCE PRN IM VAGINAL BLEEDING 12/29/16 12:30 Misoprostol 1000 mcg 1,000 mcg ONCE PRN [place] VAGINAL BLEEDING 12/29/16 12:30 Cefazolin Sodium 50 ml @ 100 mls/hr ONCE IVPB 12/29/16 12:30 12/29/16 12:59 DC Oxytocin/Lactated Ringer's 500 ml @ 125 mls/hr Q4H IV 12/29/16 12:20 12/30/16 18:19 DC 12/29/16 21:25 Levothyroxine Sodium 25 mcg 25 mcg BEFORE BREAKFAST PO 12/30/16 07:00 12/31/16 06:32 Cefazolin Sodium 50 ml @ 100 mls/hr ONCE IVPB 12/29/16 17:00 12/29/16 17:29 DC 12/29/16 16:41 Lactated Ringer's (Lr) 1,000 ml @ 125 mls/hr Q8H IV 12/30/16 01:30 12/30/16 18:19 DC 12/30/16 01:13 New born is doing well, Breast feeding BEATRIS DIAZ MD Dec 31, 2016 13:08
--- NOTE | 2016-12-31 16:58 | PN ---
Date/Time of Note Date/Time of Note DATE: 12/31/16 TIME: 16:54 Assessment/Plan VTE Prophylaxis VTE Prophylaxis Intervention: ambulation Lines/Catheters IV Catheter Type (from Nrsg): Peripheral IV Subjective 24 Hr Interval Summary Free Text/Dictation 12/30/2016 0659 A 36 year female s/p duramorph with spinal pod#1 was doing well. no headache, n/ v, itching, or pain. back is clean. care per surgery. Exam/Review of Systems Vital Signs Vitals Vital Signs Date Time Temp Pulse Resp B/P Pulse Ox O2 Delivery O2 Flow Rate FiO2 12/31/16 08:29 98.0 78 18 116/62 Room Air 12/30/16 09:30 98 21 Intake and Output 12/30/16 12/30/16 12/31/16 15:00 23:00 07:00 Intake Total 1000 ml Output Total 2000 ml Balance -1000 ml Results Result Diagram: 12/30/16 0840 Medications Medications Current Medications Acetaminophen/ Hydrocodone Bitart ([place] (5/325)) 1 tab Q4H PRN PO PAIN LEVEL 4 -6; Start 12/29/16 at 12:30 Acetaminophen/ Hydrocodone Bitart ([place] (5/325)) 2 tab Q4H PRN PO PAIN LEVEL 7 -10; Start 12/29/16 at 12:30 Oxycodone/ Acetaminophen (Percocet (5/ 325)) 1 tab Q4H PRN PO PAIN LEVEL 4-6; Start 12/29/16 at 12:30 Oxycodone/ Acetaminophen (Percocet (5/ 325)) 2 tab Q4H PRN PO PAIN LEVEL 7-10 Last administered on 12/30/16 17:13; Admin Dose 2 TAB; Start 12/29/16 at 12:30 Ibuprofen (Motrin) 600 mg Q6 PO Last administered on 12/31/16 12:17; Admin Dose 600 MG; Start 12/30/16 at 12:00 Simethicone (Mylicon) 160 mg Q8H PRN PO DISTENSION/GAS/BLOATING Last administered on 12/30/16 11:11; Admin Dose 160 MG; Start 12/29/16 at 12:30 Senna/Docusate Sodium (Senokot-S) 1 tab BID PO Last administered on 11/5/17at 08:31; Admin Dose 1 TAB; Start 12/29/16 at 21:00 Diphtheria/ Tetanus/Acell Pertussis 0.5 ml 0.5 ml ONCE ONCE IM* ; Start at 09:00; Stop 01/01/17 at 09:01 Oxytocin/Lactated Ringer's 500 ml @ 0 mls/hr ONCE PRN IV For Hemorrhage Management; Start 12/29/16 at 12:30 Methylergonovine Maleate (Methergine) 0.2 mg ONCE PRN IM VAGINAL BLEEDING; Start 12/29/16 at 12:30 Carboprost Tromethamine (Hemabate) 250 mcg ONCE PRN IM VAGINAL BLEEDING; Start 12/29/16 at 12:30 Misoprostol (Cytotec) 1,000 mcg ONCE PRN GA VAGINAL BLEEDING; Start 12/29/16 at 12:30 OLE WEBBER MD Dec 31, 2016 16:58
--- NOTE | 2016-12-31 16:58 | PN ---
Date/Time of Note Date/Time of Note DATE: 12/31/16 TIME: 16:54 Assessment/Plan VTE Prophylaxis VTE Prophylaxis Intervention: ambulation Lines/Catheters IV Catheter Type (from Nrsg): Peripheral IV Subjective 24 Hr Interval Summary Free Text/Dictation 12/30/2016 0659 A 36 year female s/p duramorph with spinal pod#1 was doing well. no headache, n/ v, itching, or pain. back is clean. care per surgery. Exam/Review of Systems Vital Signs Vitals Vital Signs Date Time Temp Pulse Resp B/P Pulse Ox O2 Delivery O2 Flow Rate FiO2 12/31/16 08:29 98.0 78 18 116/62 Room Air 12/30/16 09:30 98 21 Intake and Output 12/30/16 12/30/16 12/31/16 15:00 23:00 07:00 Intake Total 1000 ml Output Total 2000 ml Balance -1000 ml Results Result Diagram: 12/30/16 0840 Medications Medications Current Medications Acetaminophen/ Hydrocodone Bitart ([place] (5/325)) 1 tab Q4H PRN PO PAIN LEVEL 4 -6; Start 12/29/16 at 12:30 Acetaminophen/ Hydrocodone Bitart (Wood (5/325)) 2 tab Q4H PRN PO PAIN LEVEL 7 -10; Start 12/29/16 at 12:30 Oxycodone/ Acetaminophen (Percocet (5/ 325)) 1 tab Q4H PRN PO PAIN LEVEL 4-6; Start 12/29/16 at 12:30 Oxycodone/ Acetaminophen (Percocet (5/ 325)) 2 tab Q4H PRN PO PAIN LEVEL 7-10 Last administered on 12/30/16 17:13; Admin Dose 2 TAB; Start 12/29/16 at 12:30 Ibuprofen (Motrin) 600 mg Q6 PO Last administered on 12/31/16 12:17; Admin Dose 600 MG; Start 12/30/16 at 12:00 Simethicone (Mylicon) 160 mg Q8H PRN PO DISTENSION/GAS/BLOATING Last administered on 12/30/16 11:11; Admin Dose 160 MG; Start 12/29/16 at 12:30 Senna/Docusate Sodium (Senokot-S) 1 tab BID PO Last administered on 11/5/17at 08:31; Admin Dose 1 TAB; Start 12/29/16 at 21:00 Diphtheria/ Tetanus/Acell Pertussis 0.5 ml 0.5 ml ONCE ONCE IM* ; Start at 09:00; Stop 01/01/17 at 09:01 Oxytocin/Lactated Ringer's 500 ml @ 0 mls/hr ONCE PRN IV For Hemorrhage Management; Start 12/29/16 at 12:30 Methylergonovine Maleate (Methergine) 0.2 mg ONCE PRN IM VAGINAL BLEEDING; Start 12/29/16 at 12:30 Carboprost Tromethamine (Hemabate) 250 mcg ONCE PRN IM VAGINAL BLEEDING; Start 12/29/16 at 12:30 Misoprostol (Cytotec) 1,000 mcg ONCE PRN CO VAGINAL BLEEDING; Start 12/29/16 at 12:30 OLE WEBBER MD Dec 31, 2016 16:58
--- NOTE | 2016-12-31 16:58 | PN ---
Date/Time of Note Date/Time of Note DATE: 12/31/16 TIME: 16:54 Assessment/Plan VTE Prophylaxis VTE Prophylaxis Intervention: ambulation Lines/Catheters IV Catheter Type (from Nrsg): Peripheral IV Subjective 24 Hr Interval Summary Free Text/Dictation 12/30/2016 0659 A 36 year female s/p duramorph with spinal pod#1 was doing well. no headache, n/ v, itching, or pain. back is clean. care per surgery. Exam/Review of Systems Vital Signs Vitals Vital Signs Date Time Temp Pulse Resp B/P Pulse Ox O2 Delivery O2 Flow Rate FiO2 12/31/16 08:29 98.0 78 18 116/62 Room Air 12/30/16 09:30 98 21 Intake and Output 12/30/16 12/30/16 12/31/16 15:00 23:00 07:00 Intake Total 1000 ml Output Total 2000 ml Balance -1000 ml Results Result Diagram: 12/30/16 0840 Medications Medications Current Medications Acetaminophen/ Hydrocodone Bitart ([place] (5/325)) 1 tab Q4H PRN PO PAIN LEVEL 4 -6; Start 12/29/16 at 12:30 Acetaminophen/ Hydrocodone Bitart ([place] (5/325)) 2 tab Q4H PRN PO PAIN LEVEL 7 -10; Start 12/29/16 at 12:30 Oxycodone/ Acetaminophen (Percocet (5/ 325)) 1 tab Q4H PRN PO PAIN LEVEL 4-6; Start 12/29/16 at 12:30 Oxycodone/ Acetaminophen (Percocet (5/ 325)) 2 tab Q4H PRN PO PAIN LEVEL 7-10 Last administered on 12/30/16 17:13; Admin Dose 2 TAB; Start 12/29/16 at 12:30 Ibuprofen (Motrin) 600 mg Q6 PO Last administered on 12/31/16 12:17; Admin Dose 600 MG; Start 12/30/16 at 12:00 Simethicone (Mylicon) 160 mg Q8H PRN PO DISTENSION/GAS/BLOATING Last administered on 12/30/16 11:11; Admin Dose 160 MG; Start 12/29/16 at 12:30 Senna/Docusate Sodium (Senokot-S) 1 tab BID PO Last administered on 11/5/17at 08:31; Admin Dose 1 TAB; Start 12/29/16 at 21:00 Diphtheria/ Tetanus/Acell Pertussis 0.5 ml 0.5 ml ONCE ONCE IM* ; Start at 09:00; Stop 01/01/17 at 09:01 Oxytocin/Lactated Ringer's 500 ml @ 0 mls/hr ONCE PRN IV For Hemorrhage Management; Start 12/29/16 at 12:30 Methylergonovine Maleate (Methergine) 0.2 mg ONCE PRN IM VAGINAL BLEEDING; Start 12/29/16 at 12:30 Carboprost Tromethamine (Hemabate) 250 mcg ONCE PRN IM VAGINAL BLEEDING; Start 12/29/16 at 12:30 Misoprostol (Cytotec) 1,000 mcg ONCE PRN AL VAGINAL BLEEDING; Start 12/29/16 at 12:30 OLE WEBBER MD Dec 31, 2016 16:58
[2016-12-31 17:00] VITALS: BP 109/59; PULSE 67; RESP 18
[2016-12-31 20:00] VITALS: BP 126/74; PULSE 76; RESP 20
[2017-01-01 04:08] VITALS: BP 120/60; PULSE 70; RESP 20
[2017-01-01] MEDS: IBUPROFEN 600 MG TAB PO SCH ×2 (05:08→13:36)
[2017-01-01] MEDS: LEVOTHYROXINE 25 MCG TAB PO SCH (06:17)
[2017-01-01 08:12] VITALS: BP 131/57; PULSE 80; RESP 18
[2017-01-01] MEDS: SENNA/DOCUSATE NA (8.6MG/50MG) TAB PO SCH (09:00)
[2017-01-01] MEDS ORDERED: DIPHTH/TET/ACEL PERTUSS (ADULT) 0.5 ML VIAL IM* ONE (09:00)
--- NOTE | 2017-01-01 09:24 | PD.PPDC ---
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
--- NOTE | 2017-01-01 09:24 | PD.PPDC ---
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
--- NOTE | 2017-01-01 09:24 | PD.PPDC ---
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
--- NOTE | 2017-01-01 09:30 | DS ---
Date/Time of Note Date/Time of Note DATE: 01/01/17 TIME: 09:26 Discharge Summary Admission/Discharge Info Admit Date/Time Dec 29, 2016 at 03:00 Discharge Date/Time January 01, 2017 at 9:25 AM Discharge Diagnosis Post elective primary Patient Condition: Good Procedures Primary Hx of Present Illness Term estimated weight 4000 g plus complicated with GDM , hypothyroidism, declined further trial of labor Hospital Course Satisfactory uneventful Home Meds Reported Medications Vit No.124/Iron/FA ( Vitamin Tablet) 1 Each Tablet, 1 EACH PO, TAB 12/22/16 Levothyroxine Sodium* (Levothyroxine Sodium*) 25 Mcg Tablet, 25 MCG PO BEFORE BREAKFAST, #30 TAB 12/22/16 Follow-up Plan Post instructions given advised to make appointment to be seen at the clinic in 1 week , Rx, Motrin 600 mg 1 tablet every 6 hours as needed, [place] 5/ 325 1 tablet every 6 hours as needed. Primary Care Provider Miah Singh Time spent on discharge: < 30 minutes JEROD SWANSON MD Jan 01, 2017 09:30
== END 2017-01-01 14:50 | disposition home or self-care (01) | DRG 766 ==
LOC: OBT 01:20 → L-D 01:20 → OBT 03:00 → L-D 08:46 → PP1 12:36
PROVIDERS: ADMIT Obstetrics & Gynecology; ATTEND Obstetrics & Gynecology
PROC: 10D00Z1 Extraction of Products of Conception, Low, Open Approach (ICD-10-PCS; principal; 2016-12-29 08:30)
DX: O24.420 Gestational diabetes mellitus in childbirth, diet controlled (principal); E03.9 Hypothyroidism, unspecified; Z37.0 Single live birth; Z3A.38 38 weeks gestation of pregnancy; O99.284 Endocrine, nutritional and metabolic diseases complicating childbirth
CPT/HCPCS: 76815; 82962; 85025; 85610; 85730; 86592; 86885; 86900; 86901; 87340; 90715; 94760; G0463; J0690; J1200; J1885; J2175; J2250; J2274; J2405; J2590; J2765; J7120